=== PATIENT | male | born 1955 | race Caucasian/White ===

== ENCOUNTER 2019-07-07 06:43 | Outpatient (CLI) | payer OTHER ==
[2019-07-07 12:13] LABS: #Basophils 0.1 thou/uL (0.0-0.2); #Lymphocytes 1.4 thou/uL (1.20-3.40); #Monocytes 0.7 thou/uL (0.11-0.59); #Neutrophils 5.4 thou/uL (1.40-6.50); %Basophils 0.8 % (0.0-1.0); %Eosinophils 0.6 % (0.0-10.0); %Lymphocytes 18.2 % (21.0-51.0); %Monocytes 8.8 % (0.0-10.0); %Neutrophils 71.5 % (42.0-75.0); Hemoglobin 15.8 g/dL (14.0-18.0); Mean Corpuscular HGB CONC 32.2 g/dL (32.0-36.0); Mean Corpuscular Hemoglobin 30.8 pg (27.0-31.0); Mean Corpuscular Volume 95.6 fL (78.0-98.0); Platelet Count 166 thou/uL (130-400); RBC Distribution Width 11.7 % (11.5-14.5); Red Blood Cell (RBC) Count 5.13 mill/uL (4.70-6.10); White Blood Cell (WBC) Count 7.6 thou/uL (4.8-10.8)
[2019-07-07 12:35] LABS: ALT (SGPT) 17 U/L (8-55); AST (SGOT) 22 U/L (5-34); Albumin 4.4 g/dL (3.4-4.8); Alkaline Phosphatase 53 U/L (40-110); Anion Gap 15 mmol/L (10-20); BUN (Urea Nitrogen) 19 mg/dL (8.4-25.7); Bilirubin, Total 0.4 mg/dL (0.2-1.2); Calc. Creatinine Clearance 0 mL/min (70-130); Calcium 9.8 mg/dL (7.8-10.44); Carbon Dioxide 25 mmol/L (23-31); Chloride 105 mmol/L (98-107); Estimated GFR-MDRD 65; Globulin 2.7 g/dL (2.4-3.5); Glucose 136 mg/dL (80-115); Potassium 4.3 mmol/L (3.5-5.1); Protein, Total 7.1 g/dL (5.8-8.1); Sodium 141 mmol/L (136-145)
== END 2019-07-07 06:44 | disposition home or self-care (01) ==
LOC: LABBT 06:43
PROVIDERS: ATTEND Surgery
DX: Z01.818 Encounter for other preprocedural examination (principal); K40.90 Unilateral inguinal hernia, without obstruction or gangrene, not specified as recurrent
CPT/HCPCS: 80053; 85025; 93005; 93010

== ENCOUNTER 2019-07-08 08:35 | Day surgery (SDC) | payer OTHER ==
[2019-07-07 10:46] VITALS: BMI 29.1
[2019-07-08] MEDS ORDERED: Fentanyl 100 MCG/2 ML VIAL ONE (11:32)
[2019-07-08] MEDS ORDERED: Famotidine/PF 20 mg/2ml Vial ONE (11:32)
[2019-07-08] MEDS ORDERED: Bupivacaine/Epinephrine 0.25% 30 ML VIAL ONE (11:34)
--- NOTE | 2019-07-08 15:23 | OP ---
DATE OF PROCEDURE: 07/08/2019 PREOPERATIVE DIAGNOSIS: Right inguinal hernia. PROCEDURE PERFORMED: Right inguinal hernia repair with mesh. INDICATIONS: A 63-year-old male, who had right groin pain. He was seen by 2 urologists, who found a hernia. On exam, he had a small hernia that was palpable. FINDINGS: Small direct inguinal hernia just medial to the internal ring. DESCRIPTION OF PROCEDURE: After informed consent was obtained, the patient was taken to the operating room and given general mask anesthesia, placed in supine position. His groin was prepped and draped in usual fashion. Local anesthesia was infiltrated subcutaneously and deep. A transverse right groin inguinal incision was performed. Subcu divided sharply. The fascia of the external oblique was incised in direction of its fibers through the external ring. Spermatic cord isolated with a [place] drain. Cremasteric fibers . There was no indirect component. The direct bulge was then circumscribed to enter the preperitoneal space. A PHS hernia system was used. The posterior layer placed in the preperitoneal space, anterior was laid out, sutured to the pubic tubercle medially with a 2-0 Prolene suture, tucked under the external oblique fascia laterally. A notch was cut out for the spermatic cord. The cord placed anatomically. The external oblique fascia was closed with a running 3-0 Vicryl, Joey was closed with interrupted 3-0 Vicryl, and the skin closed with a running subcuticular 4-0 Rapide. Steri-Strips applied. Sterile bandage applied. The patient tolerated the procedure well, transferred to Recovery in good condition. Sponge and needle count verified correct x2. Job ID: [id number]
[2019-07-08] MEDS ORDERED: Ketorolac Tromethamine 30 MG/ML VIAL ONE (15:24)
[2019-07-08] MEDS ORDERED: Metoclopramide HCl 10 MG/2 ML VIAL ONE (15:24)
[2019-07-08] MEDS ORDERED: Dexamethasone 20 MG/5 ML VIAL ONE (15:24)
[2019-07-08] MEDS ORDERED: PROPOFOL 200 MG/20 ML VIAL ONE (15:24)
[2019-07-08] MEDS ORDERED: Lidocaine 1% PF 5 ML VIAL ONE (15:24)
[2019-07-08] MEDS ORDERED: PHENYLEPHRINE-NS 100 MCG/ML 10 ML SYRINGE ONE (15:24)
[2019-07-08] MEDS ORDERED: Ondansetron PF 4 MG/2 ML Vial ONE (15:24)
[2019-07-08] MEDS ORDERED: ePHEDrine 50 MG/ML VIAL ONE (15:24)
== END 2019-07-08 15:05 | disposition home or self-care (01) ==
LOC: SDC 08:35
PROVIDERS: ATTEND Surgery
PROC: 0YU50JZ Supplement Right Inguinal Region with Synthetic Substitute, Open Approach (ICD-10-PCS; principal; 2019-07-08)
DX: K40.90 Unilateral inguinal hernia, without obstruction or gangrene, not specified as recurrent (principal); I10 Essential (primary) hypertension; M19.90 Unspecified osteoarthritis, unspecified site; E78.00 Pure hypercholesterolemia, unspecified; E11.9 Type 2 diabetes mellitus without complications; G47.30 Sleep apnea, unspecified; E05.90 Thyrotoxicosis, unspecified without thyrotoxic crisis or storm; F32.9 Major depressive disorder, single episode, unspecified; N40.0 Benign prostatic hyperplasia without lower urinary tract symptoms; Z79.84 Long term (current) use of oral hypoglycemic drugs; Z79.899 Other long term (current) drug therapy; Z91.018 Allergy to other foods; Z99.89 Dependence on other enabling machines and devices
CPT/HCPCS: C1781; J0690; J3010; S0028